=== PATIENT | male | born 1995 | race Caucasian/White ===

== ENCOUNTER 2022-05-26 15:03 | Emergency (ER) | payer SELFPAY ==
[2022-05-26 15:10] VITALS: BP 128/78; PULSE 76; RESP 19; TEMP 36.6; O2SAT 100; BMI 24.7
--- NOTE | 2022-05-26 15:26 | HMH.EDUTC ---
[facility] Disposition Clinical Impression: Poison javier dermatitis Disposition: Home, Self-Care Condition on Discharge: Good Instructions: Summertime Rashes: Poison Javier, [place], and [place], Poison Javier, Poison [place], Poison [place], DI for Poison Javier Allergy, Prednisone Additional Instructions: Start oral steriods tomorrow Oatmeal baths may help to dry up the rash Calamine lotion may help to dry the rash up and help with itching Over the counter Benadryl may help with itching Return if needed Straight to ER if any life threatening symptoms Prescriptions: predniSONE [Prednisone 10mg Tab Dose-Pack] 10 mg PO UD DOSE PK 6 Days #21 tab Transmission Status: Received by [email or web address] #[id number] Referrals: Provider,Referral, MD [Primary Care Provider] - As needed Time of Disposition: 15:33 Medical Decision Making - Inocente Inquiry Pt receiving controlled substance: No Inocente was queried for this patient: No Vital Signs: 05/26/22 15:10 05/26/22 15:39 Temperature 97.9 F 97.9 F Temperature Source Oral Pulse Rate 76 Pulse Rate [Right Brachial] 76 Respiratory Rate 19 19 Blood Pressure 128/78 Blood Pressure [Right Arm] 128/78 Blood Pressure Mean [Right Arm] 94 Blood Pressure Source [Right Arm] Automatic Cuff Blood Pressure Position [Right Arm] Sitting 02 Sat by Pulse Oximetry 100 Oxygen Delivery Method Room Air Orders (Tests/Meds): ED MEDICATIONS Discontinued Medications Generic Name Dose Route Start Last Admin Trade Name Heberq PRN Reason Stop Dose Admin Methylprednisolone Sodium Succinate 125 mg 05/26/22 15:27 05/26/22 15:39 Methylprednisolone Sod Succ 125mg Vial IM 05/26/22 15:28 125 mg ONCE ONE Administration [facility] HPI - General Stated complaint: rash Time Seen by Provider: 05/26/22 15:27 Mode of Arrival: Ambulatory Source of Information: Patient Limitations: No Limitations Description of Symptoms (Recalled from Triage Doc. by RN): PATIENT C/O POISON JAVIER TO ARMS AND CHEST SINCE TUESDAY HEENT Symptoms (Recalled from RN notes): No Resp Symptoms (Recalled from RN notes): No Skin Symptoms (Recalled from RN notes): No MS Symptoms (Recalled from RN notes): No Functional Status (Recalled from RN notes): WNL - History of Present Illness Provider Complaint: Patient states that he cleared some brush over the weekend and he has been having poison javier on his chest and arms since Tuesday and now it has started to break out on his forehead and above left eye and he was concerned it would getinto his eyes - Related Data Previous Rx's Medication Instructions Recorded predniSONE [Prednisone 10mg Tab 10 mg PO UD DOSE PK 6 Days #21 tab 05/26/22 Dose-Pack] Allergies Allergy/AdvReac Type Severity Reaction Status Date / Time No Known Allergies Allergy Verified 05/26/22 15:26 - Worker's Comp Is this a Worker's Comp case?: No [facility] History - Hepatitis A Screen Attestation statement:: This patient has been screened for Hepatitis A risk factors. I have reviewed the patient's past medical history: Yes - Social History Alcohol Intake: never Occupational Status: other ROS Obtained: Yes All systems reviewed & no additional complaints, Yes Systems reviewed as appropriate & no additional complaints - Constitutional Constitutional: Reports system reviewed and no additional complaints, except as docu, Denies body ache, Denies chills, Denies fever(s) - ENT Ears, Nose, Mouth, and Throat: Reports system reviewed and no additional complaints, except as docu - Cardiovascular Cardiovascular: Reports system reviewed and no additional complaints, except as docu, Denies chest pain - Respiratory Respiratory: Reports system reviewed and no additional complaints, except as docu, Denies shortness of breath, Denies cough, Denies dyspnea - Gastrointestinal Gastrointestingal: Reports: system reviewed and no additional complaints, except as docu - Integumentary/Breasts Skin/Breast: Repo
[2022-05-26 15:39] VITALS: BP 128/78; PULSE 76; RESP 19; TEMP 36.6; O2SAT 100
== END 2022-05-26 15:54 | disposition home or self-care (01) ==
PROVIDERS: Emergency Provider Nurse Practitioner
DX: L23.7 Allergic contact dermatitis due to plants, except food (principal)
CPT/HCPCS: 96372; 99212; G0463

== ENCOUNTER 2025-09-17 21:10 | Emergency (ER) | payer BC, SELFPAY ==
[2025-09-17 21:17] VITALS: BP 144/124; PULSE 97; RESP 16; TEMP 36.7; O2SAT 97; BMI 27.3
--- OUTSIDE RECORDS SUMMARY | 2025-09-17 21:18 | XMS_ITS | Clinical Summary ---
Author Organization [facility] Address [address] [place] [id number] Phone [email or web address] Care Team Providers Care Command And Control Officer Name Role Phone Unavailable Primary Care Provider Unavailabl e Allergies No known active allergies Medications No known medications Active Problems Problem Noted Date Diagnosed Date H/O umbilical hernia repair 03/27/2019 Overview (03/27/2019): -2017 Social History Tobacco Use Types Packs/Day Years Used Date Smoking Tobacco: Every Day Cigarettes Smokeless Tobacco: Never Intimate Partner Violence Answer Date R ecorded Insults You Not on file 02/26/2021 Threatens You Not on file 02/26/2021 Screams at You Not on file 02/26/2021 Physically Hurt Not on file 02/26/2021 Intimate Partner Violence Score Not on file 02/26/2021 Stress Answer Date Recorded Stress in your Life Not on file 09/19/2024 Dealing with Stress 3 09/19/2024 Sex and Gender Information Value Date Recorded Sex Assigned at Not on file Legal Sex Male 10:53 AM CDT Gender Identity Not on file Sexual Orientation Not on file Last Filed Vital Signs Vital Sign Reading Time Taken Comments Blood Pressure 130/84 03/27/2019 2:28 PM EDT Pulse 94 12/18/2021 4:27 PM EST Temperature 37 C (98.6 F) 12/23/2021 5:19 PM EST Respiratory Rate - - Oxygen Saturation 96% 12/18/2021 4:27 PM EST Inhaled Oxygen Concentration - - Weight 98.9 kg (218 lb) 03/27/2019 2:28 PM EDT Height 179.1 cm (5' 10.5 ) 03/27/2019 2:28 PM ED T Body Mass Index 30.84 03/27/2019 2:28 PM EDT Plan of Treatment Health Maintenance Due Date Last Done Comments Dental Cleaning/Exam 1995 HIV Screening 1995 Hepatitis C Screening 1995 Polio Immunization (3 of 3 - 4-dose series) 12/26/1999 06/25/1999, 1995 HPV Immunization (1 - Male 3-dose series) 2010 Hep B Infection Screening - Triple Screen 2013 Pneumococcal Immunization (1 of 2 - PCV) 2014 Tetanus Diphtheria and Pertussis Immunization (7 - Td or Tdap) 07/23/2019 07/23/2009, 06/25/1999, 12/24/1996, Additional history exists Annual Preventive Exam 03/27/2020 03/27/2019 Covid-19 Immunization (1 - season) 2025 Influenza Immunization (#1) 2025 Hepatitis B Immunization Completed 996, 1995, 1995 HIB Immunization Completed 12/24/1996, , 1995, Additional history exists Hepatitis A Immunization Aged Out No longer eligible based on patient's age to complete this topic Varicella Immunization Aged Out No lo nger eligible based on patient's age to complete this topic Insurance OPT OUT NO COPAY NB
--- NOTE | 2025-09-17 21:32 | HMH.EDGENADL ---
Discharge Plan Disposition Patient Disposition: Home, Self-Care Condition: Good Prescriptions Prescriptions: No Action prednisone 10 MG tablets,dose pack 10 mg PO UD DOSE PK 6 Days Qty: 21 0RF Rx Instructions: taper pack Referrals Follow up/Referrals: Provider,Referral, [Primary Care Provider, Medical] - See instructions Activity Restrictions/Add. Instructions Additional Instructions/Restrictions: Don't drink and drive. Clinical Impressions Clinical Impression: Alcohol intoxication Stand Alone Forms Stand Alone Forms: Work/School Release Print Language Print Language: Cymro Discharge ED Provider: Mecca Scherer Adult HPI General Chief complaint: Fall Stated complaint: fall Time Seen by Provider: 09/17/25 21:18 Mode of Arrival: EMS Source of Information: Patient and EMS Description of Symptoms (Recalled from ER Triage Doc. by RN): Pt presents to the ED via EMS for evaluation of laceration to his chin that occurred after GLF at home. Pt reports to getting off work around 1730 and beginning to drink whiskey, an unknown amount just saying a lot . Pt does not recall LOC, reports they just said I had blood everywhere Pt reports to drinking everday, denies going through withdrawls. History of Present Illness HPI narrative: Patient is an otherwise healthy 30-year-old male who presented to the emergency department with a laceration to his chin. Per girlfriend, patient fell and hit his chin while drinking tonight. Unknown LOC. Patient states that his tetanus is up-to-date. Patient is unsure of what happened. Patient states that he drinks daily. Patient denies any history of withdrawals. Is repetitive and reports that he has to go to work in the morning at 4 AM. Patient denies any chest pain shortness of breath extremity pain numbness weakness. Related Data Previous Rx's ?Medication ?Instructions ?Recorded prednisone 10 mg tablets in a dose 10 mg PO UD DOSE PK 6 days #21 tabs 05/26/22 pack Allergies Allergy/AdvReac Type Severity Reaction Status Date / Time No Known Allergies Allergy Verified 05/26/22 15:26 [facility] Disclaimer: The information contained in this section may have been updated after the patient was seen, as this information can be updated by other users. Social History Smoking Status: Current every day smoker alcohol intake: never current occupational status: other Travel in the last 8 weeks?: None Have you lived/traveled outside US in past 30 days?: No Contact w/someone who lives/traveled outside US past 30 days?: No Exposure to someone with infectious disease in past 14 days?: No Do you have a fever (greater than 100.4 F or 38 C)?: No Have you tested positive for COVID-19?: No Exposed to someone with COVID-19 in past 14 days?: No Do you have a sore throat?: No Do you have a cough?: No Do you have any weakness?: No Do you have any diarrhea?: No Are you experiencing any unusual bleeding?: No Do you have any muscle aches/pain?: No Do you have any abdominal pain?: No Are you experiencing loss of taste or smell?: No ROS Obtained: Yes All systems reviewed & no additional complaints except as documented and Yes Systems reviewed as appropriate & no additional complaints except as documented Physical Exam General General appearance: alert, in no apparent distress and other (acutely intoxicated) Head Head exam: normocephalic, normal inspection and other (3 cm laceration to the chin) Eye Eye exam: Present normal appearance, PERRL and EOMI; Absent scleral icterus ENT ENT exam: Present normal exam and normal external ear exam Neck Neck exam: Present normal inspection and full ROM Chest Chest inspection: Present normal inspection and symmetric chest wall rise Respiratory Respiratory exam: Present normal lung sounds bilaterally; Absent respiratory distress or wheezes Cardiovascular Cardiovascular exam: Present regular rate, normal rhythm and normal heart sounds Abdominal Exam Abdominal exam: Present soft and distention; Absent tenderness, guarding or rebound Extremities Exam Extremities exam: Present normal inspection and full ROM Back Exam Back exam: Present normal inspection and full ROM Neurological Exam Neurological exam: Present alert, oriented X3 and normal gait; Absent motor sensory deficit or reflexes normal Psychiatric Psychiatric exam: Present normal affect and normal mood Skin Skin exam: Present warm and dry Medical Decision Making Medical Records Medical records reviewed: Yes I reviewed the patient's medical records. Screening: Per USPSTF and CDC recommendations, given the prevalence of disease in our region, it is our hospital?s policy to screen for HIV and viral Hepatitis for all patients aged 18 and over and those with ongoing risk factors. Inocente Inquiry Pt receiving controlled substance: No Vital Signs: 09/17/25 21:17 09/17/25 23:05 Temperature 98.1 F 98.3 F Temperature Source Oral Oral Pulse Rate 89 Pulse Rate [Radial] 97 H Respiratory Rate 16 16 Blood Pressure 136/84 Blood Pressure [Right Arm] 144/124 H Blood Pressure Mean [Right Arm] 130 Blood Pressure Position [Right Arm] Sitting 02 Sat by Pulse Oximetry 97 Oxygen Delivery Method Room Air Room Air Lab Data Lab results reviewed: Yes I reviewed the patient's lab results. Orders (Tests/Meds): ORDERS Category Date Time Status CT cervical spine wo con Stat Cat Scan 09/17/25 21:[address] head/brain wo con Stat Cat Scan 09/17/25 21:58 Completed Medical Decision Narrative: Patient is a 30-year-old male with no significant past medical history who presented to the emergency department with a laceration to his chin. Patient was acutely intoxicated. Patient's vital signs were otherwise unremarkable. Differential includes but not limited to: Laceration, intracranial pathology, cervical spine pathology, arrhythmia, amongst others. CT head and CT cervical spine were obtained which showed no acute pathology. EKG was obtained which showed normal sinus rhythm without acute ST or T wave changes concerning for ischemia. Patient's chin laceration was cleaned extensively and repaired. Patient was given wound care instructions. Patient's neighbor came to pick him up and patient was otherwise discharged home in stable condition. Procedures Laceration Laceration 1: Site: face Size (cm): 3 Description: linear Depth: involves subcutaneous layer Local Anesthetic: lidocaine 2% Amount of anesthesia used (mL): 5 Pre-repair: wound explored, irrigated extensively and deep structures intact Skin layer closed with: other (chromic gut) Size (cm): 4-0 Number of sutures: 6 Technique: simple, interrupted Subcutaneous layer closed with: other (fast absorbing gut) Size: 5-0 Number of sutures: 3 Technique: simple, interrupted Critical Care Critical Care Time Critical Care Time: No
--- NOTE | 2025-09-17 21:58 | CT_ITS ---
PROCEDURE INFORMATION: Exam: CT Head Without Contrast Exam date and time: 09/17/2025 10:08 PM Age: 30 years old Clinical indication: Injury or trauma; Fall; Additional info: Fall on blood thinners TECHNIQUE: Imaging protocol: Computed tomography of the head without contrast. Radiation optimization: All CT scans at this facility use at least one of these dose optimization techniques: automated exposure control; mA and/or kV adjustment per patient size (includes targeted exams where dose is matched to clinical indication); or iterative reconstruction. COMPARISON: No relevant prior studies available. FINDINGS: Brain: No acute intracranial hemorrhage. No abnormal extra-axial fluid collection. No midline shift or mass effect. No cerebral edema. Cerebral ventricles: No ventriculomegaly. Paranasal sinuses: No air-fluid levels. Mastoid air cells: Visualized mastoid air cells are clear. Bones: No acute fracture. Soft tissues: Unremarkable. IMPRESSION: No acute intracranial abnormality.
--- NOTE | 2025-09-17 21:59 | CT_ITS ---
PROCEDURE INFORMATION: Exam: CT Cervical Spine Without Contrast Exam date and time: 09/17/2025 10:09 PM Age: 30 years old Clinical indication: Injury or trauma; Fall; Additional info: Intoxication TECHNIQUE: Imaging protocol: Computed tomography of the cervical spine without contrast. Radiation optimization: All CT scans at this facility use at least one of these dose optimization techniques: automated exposure control; mA and/or kV adjustment per patient size (includes targeted exams where dose is matched to clinical indication); or iterative reconstruction. COMPARISON: CT HEAD/BRAIN WO CON 09/17/2025 10:08 PM FINDINGS: Bones: No acute fracture or subluxation. No significant disc herniation or disc bulge. No significant stenosis. Lungs: Multiple small peripheral blebs at the lung apices. Soft tissues: Visualized paravertebral soft tissues demonstrate no acute abnormality. IMPRESSION: No acute abnormality.
--- NOTE | 2025-09-17 22:14 | PC.NURSE ---
Called pt's and explained that he needed a ride. Pt's was agitated and states can you call the police and let them bring him home? I informed the that we had spoke to the [facility] & they can't transport intoxicated patients. said she would make some calls and call back.
--- NOTE | 2025-09-17 22:15 | PC.NURSE ---
called Dirk Cuevas per EMS when the pt was ready to leave. He was confused as to why we were calling him and said he needed to call his for transport home that he couldnt transport him home it was against the bilaws.
--- NOTE | 2025-09-17 22:19 | PC.NURSE ---
Pt's neighbor will come to pick him up.
[2025-09-17 23:05] VITALS: BP 136/84; PULSE 89; RESP 16; TEMP 36.8; O2SAT 99
== END 2025-09-17 23:08 | disposition home or self-care (01) ==
PROVIDERS: Emergency Provider Student in an Organized Health Care Education/Training Program
DX: S01.81XA Laceration without foreign body of other part of head, initial encounter (principal); F10.129 Alcohol abuse with intoxication, unspecified; F17.210 Nicotine dependence, cigarettes, uncomplicated; W19.XXXA Unspecified fall, initial encounter
CPT/HCPCS: 12052; 70450; 72125; 93005; 99285; J2003

== ENCOUNTER 2025-09-29 08:56 | Outpatient (CLI) | payer BC, SELFPAY | END 2025-09-29 23:59 | disposition home or self-care (01) | LOC: LAB.DROPOF 10-01 08:57 | PROVIDERS: PCP Internal Medicine Adolescent Medicine; Visit Provider Student in an Organized Health Care Education/Training Program | DX: N39.0 Urinary tract infection, site not specified (principal); Z11.59 Encounter for screening for other viral diseases | CPT/HCPCS: 87086; 87491; 87563; 87591; 87661 ==

== ENCOUNTER 2025-09-29 13:02 | Emergency (ER) | payer BC, SELFPAY ==
[2025-09-29 13:04] VITALS: BP 181/94; PULSE 95; RESP 16; TEMP 36.4; O2SAT 100; BMI 28.1
[2025-09-29 13:16] VITALS: BP 179/113; PULSE 95; O2SAT 100
--- NOTE | 2025-09-29 13:26 | CT_ITS ---
PROCEDURE INFORMATION: Exam: CT Abdomen And Pelvis With Contrast Exam date and time: 09/29/2025 2:20 PM Age: 30 years old Clinical indication: Other: Suprapubic swelling/tenderness TECHNIQUE: Imaging protocol: Computed tomography of the abdomen and pelvis with contrast. Radiation optimization: All CT scans at this facility use at least one of these dose optimization techniques: automated exposure control; mA and/or kV adjustment per patient size (includes targeted exams where dose is matched to clinical indication); or iterative reconstruction. Contrast material: ISOVUE; Contrast volume: 75 ml; Contrast route: IV; COMPARISON: No relevant prior studies available. FINDINGS: Liver: Hepatic steatosis Gallbladder and biliary ducts: The gallbladder is unremarkable Pancreas: Normal. No ductal dilation. Spleen: Normal. No splenomegaly. Adrenal glands: Normal. No mass. Kidneys and ureters: 14 mm simple cyst right kidney . No follow-up imaging recommended . Stomach and bowel: Bowel wall thickening in the descending colon and rectosigmoid may represent colitis in the appropriate clinical setting. Appendix: Normal appendix Intraperitoneal space: Unremarkable. No free air. No significant fluid collection. Vasculature: Unremarkable. No abdominal aortic aneurysm. Lymph nodes: Unremarkable. No enlarged lymph nodes. Urinary bladder: Unremarkable as visualized. Reproductive: Unremarkable as visualized. Bones/joints: Unremarkable. No acute fracture. Soft tissues: Unremarkable. IMPRESSION: Bowel wall thickening in the descending colon and rectosigmoid may represent colitis in the appropriate clinical setting. COMMENTS: Consistent with the [employer]'s Incidental Findings Committee white paper (J Am Chio Radiol 2018): Any incidental renal lesion less than 1 cm or classified as too small to characterize, or any incidental cystic renal lesion characterized as simple-appearing, is likely benign. No follow-up imaging is recommended for these lesions per consensus recommendations based on imaging criteria.
--- NOTE | 2025-09-29 13:27 | HMH.EDGENADL ---
Discharge Plan Disposition Patient Disposition: Home, Self-Care Prescriptions Prescriptions: New nystatin 100,000 unit/gram cream 1 applic topical BID Qty: 15 0RF Referrals Follow up/Referrals: Provider,Referral, MD [Referring, Medical] - See instructions Activity Restrictions/Add. Instructions Additional Instructions/Restrictions: Your workup today shows no evidence of a urinary tract infection and no signs of injury to your bladder. There are some mild inflammation of the colon. You can take Tylenol and ibuprofen to help with your symptoms. I am prescribing you nystatin cream as you could have a yeast infection causing your rash and pain to your penis. Apply this twice daily. I do encourage you to follow with your primary care doctor as your liver enzymes are elevated and this will need to be followed. Avoid alcohol use if possible as this can make this worse. If you develop any new or worsening symptoms, or if you become concerned for your health for any reason, return to the emergency department for evaluation Clinical Impressions Clinical Impression: Pain, penile, Colitis, Transaminitis Instructions Patient Instructions: DI for Urinary Tract Infection (UTI), DI for Urinary Tract Infection in Children Print Language Print Language: Lithuanian Discharge ED Provider: Darrius Brambila Adult HPI General Chief complaint: Urogenital-Male Stated complaint: Swelling in upper pubic area Time Seen by Provider: 09/29/25 13:19 Mode of Arrival: Ambulatory Source of Information: Patient Description of Symptoms (Recalled from ER Triage Doc. by RN): Pt states on tuesday he coughed while he was peeing mid stream and felt a tearing sensation in his penis. Pt states since then, he has experienced dysuria along with some upper pubic swelling. Pt denies any scrotal swelling History of Present Illness HPI narrative: Mitch Torres is a 30-year-old male with no significant past medical history who presents to the emergency department for complaints of burning with urination as well as swelling and pain in his suprapubic region. 4 days ago, patient states that he was barely awake and urinating and coughed while urinating, he states that this increased the pressure of his urinary stream and he had pain in his penis at that time. He thought he may have slightly torn his urethra but he has not noticed any blood with urination ever since. Since then, he has had increasing swelling and pain in the suprapubic region and he has noticed continued burning with urination and redness to the tip of his penis extending up his penile shaft into his suprapubic region as well. States that he has sexually active and monogamous with his and is not concerned for STIs. He has not had any penile discharge. He has been able to urinate since and states that it is usually a straight stream but sometimes will split into multiple directions. He was seen at urgent treatment center earlier today where he had his urine tested and STI workup sent, however was told that the ER might have more to offer and look into this further. Patient denies any testicular pain. Related Data Previous Rx's ?Medication ?Instructions ?Recorded nystatin 100,000 unit/gram topical 1 applic topical BID #15 grams 09/29/25 cream Allergies Allergy/AdvReac Type Severity Reaction Status Date / Time No Known Allergies Allergy Verified 09/29/25 12:05 [facility] Disclaimer: The information contained in this section may have been updated after the patient was seen, as this information can be updated by other users. Social History Smoking Status: Current every day smoker alcohol intake: never current occupational status: other Travel in the last 8 weeks?: None Have you lived/traveled outside [place] in past 30 days?: No Contact w/someone who lives/traveled outside [place] past 30 days?: No Exposure to someone with infectious disease in past 14 days?: No Do you have a fever (greater than 100.4 F or 38 C)?: No Have you tested positive for COVID-19?: No Exposed to someone with COVID-19 in past 14 days?: No Do you have a sore throat?: No Do you have a cough?: No Do you have any weakness?: No Do you have any diarrhea?: No Are you experiencing any unusual bleeding?: No Do you have any muscle aches/pain?: No Do you have any abdominal pain?: No Are you experiencing loss of taste or smell?: No ROS Obtained: Yes Systems reviewed as appropriate & no additional complaints except as documented Physical Exam General General appearance: alert and in no apparent distress Head Head exam: atraumatic Eye Eye exam: Present normal appearance ENT ENT exam: Present normal external ear exam Neck Neck exam: Present full ROM Chest Chest inspection: Present symmetric chest wall rise Respiratory Respiratory exam: Present normal lung sounds bilaterally; Absent respiratory distress Cardiovascular Cardiovascular exam: Present regular rate and normal rhythm Abdominal Exam Abdominal exam: Present soft, distention (Suprapubic and inguinal area bilaterally) and tenderness (Suprapubic and inguinal area bilaterally); Absent guarding, rebound or rigidity exam: Present normal testicular lie, circumcised and other (Nonblanchable, flat areas of Erythema to the urethral meatus that extends over the dorsum of the penis to the suprapubic area); Absent urethral discharge or scrotal swelling Extremities Exam Extremities exam: Present normal inspection Back Exam Back exam: Present normal inspection Neurological Exam Neurological exam: Present alert and oriented X3 Psychiatric Psychiatric exam: Present normal affect Skin Skin exam: Present warm and dry Medical Decision Making Medical Records Screening: Per USPSTF and CDC recommendations, given the prevalence of disease in our region, it is our hospital?s policy to screen for HIV and viral Hepatitis for all patients aged 18 and over and those with ongoing risk factors. Inocente Inquiry Pt receiving controlled substance: No Vital Signs: 09/29/25 13:04 09/29/25 13:16 Temperature 97.6 F Temperature Source Temporal Artery Scan Pulse Rate 95 H Pulse Rate [Right] 95 H Respiratory Rate 16 Blood Pressure 179/113 H Blood Pressure [Right Arm] 181/94 H Blood Pressure Mean [Right Arm] 123 Blood Pressure Source [Right Arm] Automatic Cuff Blood Pressure Position [Right Arm] Sitting 02 Sat by Pulse Oximetry 100 100 Oxygen Delivery Method Room Air Lab Data Lab Results 09/29/25 13:32: Urine Color Yellow, Urine Appearance Clear, Urine pH 7.0, Ur Specific [place] 1.010, Urine Protein Negative, Urine Glucose (UA) Negative, Urine Ketones Negative, Urine Blood Negative, Urine Nitrate Negative, Urine Bilirubin Negative, Urine Urobilinogen 0.2, Ur Leukocyte Esterase Negative, Urine RBC None, Urine WBC None, Ur Squamous Epith Cells None, Urine Bacteria None 09/29/25 13:45: WBC 7.8, RBC 4.99, Hgb 15.1, Hct 45.0, MCV 90.2, MCH 30.3, MCHC 33.6, RDW 12.4, Plt Count 213, MPV 9.8, Neut % (Auto) 70.0, Lymph % (Auto) 19.5, Winn % (Auto) 7.5, Eos % (Auto) 1.8, Baso % (Auto) 0.9, Neut # (Auto) 5.5, Lymph # (Auto) 1.5, Winn # (Auto) 0.6, Eos # (Auto) 0.1, Baso # (Auto) 0.1, Sodium 135 L, Potassium 4.0, Chloride 98, Carbon Dioxide 28, Anion Gap 13.0, BUN 9, Creatinine 0.70, Estimated Creat Clear 194, Estimated GFR 132, Est GFR ( Amer) 160, Glucose 95, Lactate 1.7, Calcium 9.1, Total Bilirubin 0.5, AST 164 H, ALT 188 H, Alkaline Phosphatase 84, Total Protein 9.0 H, Albumin 5.0, Globulin 4.0 H, Albumin/Globulin Ratio 1.3 09/29/25 13:45 09/29/25 13:45 Orders (Tests/Meds): ED MEDICATIONS Discontinued Medications Generic Name Dose Route Start Last Admin Trade Name Freq PRN Reason Stop Dose Admin Iopamidol 75 ml 09/29/25 14:20 09/29/25 14:21 Iopamidol-370 (76%);100ml Bottle IV 09/29/25 14:21 75 ml ONCE ONE Administration Sodium Chloride 10 ml 09/29/25 14:20 09/29/25 14:21 Sodium Chloride 0.9% 10ml Syr (Rad Only) IV 09/29/25 14:21 10 ml ONCE ONE Administration ORDERS Category Date Time Status CT abdomen pelvis w con Stat Cat Scan 09/29/25 13:26 Completed CBC w/Auto Diff [Complete Blood Count Auto Diff] Stat Lab 09/29/25 13:45 Completed CMP [Comprehensive Metabolic Panel] Stat Lab 09/29/25 13:45 Completed Lactic Acid Stat Lab 09/29/25 13:45 Completed UA [Urinalysis and Microscopic] Stat Lab 09/29/25 13:32 Completed Medical Decision Narrative: Mitch Torres is a 30-year-old male with no significant past medical history who presents to the emergency department for complaints of burning with urination as well as swelling and pain in his suprapubic region. 4 days ago, patient states that he was barely awake and urinating and coughed while urinating, he states that this increased the pressure of his urinary stream and he had pain in his penis at that time. He thought he may have slightly torn his urethra but he has not noticed any blood with urination ever since. Since then, he has had increasing swelling and pain in the suprapubic region and he has noticed continued burning with urination and redness to the tip of his penis extending up his penile shaft into his suprapubic region as well. States that he has sexually active and monogamous with his and is not concerned for STIs. He has not had any penile discharge. He has been able to urinate since and states that it is usually a straight stream but sometimes will split into multiple directions. He was seen at urgent treatment center earlier today where he had his urine tested and STI workup sent, however was told that the ER might have more to offer and look into this further. Patient denies any testicular pain. On arrival, patient is hypertensive, borderline tachycardic, afebrile, oxygen saturation 100% on room air. Physical exam, as stated above, revealed overall well-appearing male in no distress. Abdomen is overall soft and nontender, however he does have some distention and tenderness in the suprapubic region. Penile exam shows no penile swelling but he does have erythema at the urethral meatus extending up to the dorsal aspect of the penis into the suprapubic area. This erythema is nonblanching and is not raised. Normal testicular appearance. Differential diagnosis includes, but is not limited to: Urinary tract infection, STI, bladder wall rupture, urethral injury, balanitis, among others. The most morbid conditions were considered and workup was based on these. Workup in the emergency department included: UA, CBC with differential, CMP, lactic acid, CT abdomen pelvis with IV contrast. Workup shows no leukocytosis, no anemia, platelets within normal limits. Mild hyponatremia 135 but electrolytes otherwise grossly nonactionable. No ORAL. Liver enzymes are elevated with AST of 164 and ALT of 188. Total bilirubin normal at 0.5. Urine without evidence of blood or infection. CT imaging was interpreted by me personally. No evidence of bladder wall rupture. No other acute findings within abdomen pelvis other than mild colitis. See radiology report for details. On reassessment, patient remains in stable condition. Patient does state that he drinks alcohol occasionally but has no history of liver issues and is not aware that he has had elevated liver enzymes in the past. Instructed to follow-up with his primary care physician regarding this and to avoid excessive alcohol use. I feel that he may have a component of a candidal infection and would benefit from nystatin cream. This was prescribed to patient. I did encourage him to follow-up with his primary care doctor as well due to his elevated blood pressure. Return precautions were given. All questions were answered. He demonstrated understanding was in agreement this plan. He was then discharged from the emergency department in stable condition. Critical Care Critical Care Time Critical Care Time: No
[2025-09-29 13:36] LABS: Microscopic, Urine URINE MICROSCOPIC (MICROSCOPIC)
--- OUTSIDE RECORDS SUMMARY | 2025-09-29 13:40 | XMS_ITS | Clinical Summary ---
Author Organization [facility] Address [address] [place] [id number] Phone [email or web address] Care Team Providers Care [employer] Name Role Phone Unavailable Primary Care Provider [...]
[2025-09-29 13:53] LABS: Hematocrit 45.0 % (42.0-52.0); Hemoglobin 15.1 g/dL (14.1-18.0); Immature Granulocytes % 0.3 %; Mean Corpuscular HGB Conc 33.6 g/dL (31.8-35.4); Mean Corpuscular Hemoglobin 30.3 pg (27.0-31.2); Mean Corpuscular Volume 90.2 fl (80-94); Nucleated Red Blood Cells % 0 %; Platelet Count 213 K/mm3 (142-424); Red Blood Count 4.99 M/mm3 (4.60-6.20); Red Cell Distribution Width-SD 41.2 fL; White Blood Count 7.8 K/mm3 (4.8-10.8)
[2025-09-29 14:00] LABS: Bilirubin,Urine Negative (Negative); Color,Urine YELLOW (Yellow); Glucose,Urine (UA) Negative (Negative); Ketones,Urine Negative (Negative); Leukocyte Esterase,Urine Negative (Negative); PH,Urine 7.0 (5.0-8.5); Protein,Urine Negative (Negative); Specific Gravity, Urine 1.010 (1.005-1.030); Urobilinogen,Urine 0.2 EU/dl (0.2)
[2025-09-29 14:04] LABS: Albumin Level 5.0 g/dl (3.5-5.0); Chloride 98 mmol/L (98-107); Potassium 4.0 mmoL/L (3.5-5.1); Sodium 135 mmol/L (136-145)
[2025-09-29 14:06] LABS: Blood Urea Nitrogen 9 mg/dl (9-20)
[2025-09-29 14:07] LABS: Alanine Aminotransferase 188 U/L (12-78); Albumin/Globulin Ratio 1.3 (1.1-1.8); Alkaline Phosphatase 84 U/L (38-126); Anion Gap 13.0 mEq/L (5-15); Aspartate Amino Transferase 164 U/L (17-59); Bilirubin,Total 0.5 mg/dl (0.2-1.3); Calcium 9.1 mg/dl (8.4-10.2); Carbon Dioxide 28 mmol/L (22.0-30.0); Creatinine Clearance Estimated 194 mL/min (50-200); Creatinine,Serum 0.70 mg/dl (0.66-1.25); Estimated Glomerular Filt Rate 132 ml/min (>60); GFR (African American) 160 ML/MIN (>60); Globulin 4.0 g/dL (1.3-3.2); Glucose 95 mg/dl (74-100); Total Protein,Serum 9.0 g/dl (6.3-8.2)
[2025-09-29] MEDS: SODIUM CHLORIDE 0.9% 10ML SYR (RAD ONLY) 10 ML IV (14:21)
[2025-09-29] MEDS: IOPAMIDOL-370 (76%);100ML BOTTLE 75 ML IV (14:21)
[2025-09-29 15:20] VITALS: BP 154/94; PULSE 92; RESP 16; TEMP 36.9; O2SAT 99
[2025-10-04 14:12] LABS: Mycoplasma genitalium, NAA Negative (Negative); Neisseria gonorrhoeae, NAA Negative (Negative)
== END 2025-09-29 15:27 | disposition home or self-care (01) ==
PROVIDERS: Student in an Organized Health Care Education/Training Program; Emergency Provider Student in an Organized Health Care Education/Training Program; PCP Internal Medicine Adolescent Medicine
DX: K52.9 Noninfective gastroenteritis and colitis, unspecified (principal); R74.01 Elevation of levels of liver transaminase levels
CPT/HCPCS: 74177; 80053; 81001; 83605; 85025; 87086; 87491; 87563; 87591; 87661; 99284; Q9967